=== PATIENT | female | born 1950 | race African-American/Black ===

== ENCOUNTER 2017-09-16 09:50 | Day surgery (SDC) | payer MEDICARE, MEDICAID ==
[~2017-09-16] VITALS: Ht 165.1 cm; Wt 55.3 kg
[2017-09-16] MEDS ORDERED: ZITHROMAX Z PA250 MG PO (10:44)
[2017-09-16] MEDS ORDERED: ACIDOPHILIS PO (10:45)
[2017-09-16] MEDS ORDERED: ALBUTEROL0.83 MG/ML IH (10:46)
[2017-09-16] MEDS ORDERED: NORVASC 10MG10 MG PO (10:47)
[2017-09-16] MEDS ORDERED: COLACE 100100 MG/CAP PO (10:47)
[2017-09-16] MEDS ORDERED: COREG12.5 MG PO (10:47)
[2017-09-16] MEDS ORDERED: FERRO-TIME325 MG PO (10:48)
[2017-09-16] MEDS ORDERED: FLONASEALLERGY NS (10:49)
[2017-09-16] MEDS ORDERED: FOLIC ACID 11 MG/TA1 PO (10:49)
[2017-09-16] MEDS ORDERED: MIRALAX PA17 GM/Dose PO (10:50)
[2017-09-16] MEDS ORDERED: LASIX 40MG TABL40 MG PO (10:50)
[2017-09-16] MEDS ORDERED: PRILOTC PO (10:51)
[2017-09-16] MEDS ORDERED: 00186-0370-20 IH (10:52)
[2017-09-16] MEDS ORDERED: SINGULAIR 110 MG/TAB PO (10:52)
[2017-09-16] MEDS ORDERED: K-DUR20 MEQ PO (10:52)
[2017-09-16] MEDS ORDERED: VENTOLIN0.09 MG IH (10:53)
[2017-09-16] MEDS ORDERED: EFFEXOR XR37.5 MG/CA PO (10:53)
[2017-09-16 10:55] VITALS: BP 126/60; PULSE 63; TEMP 97.6
[2017-09-16 12:10] VITALS: BP 106/55; PULSE 70; TEMP 97.6
[2017-09-16 12:25] VITALS: BP 145/60; PULSE 60
[2017-09-16 12:40] VITALS: BP 139/68; PULSE 59
== END 2017-09-16 13:10 | disposition home or self-care (01) ==
LOC: SDCO 09:50
DX: K21.9 Gastro-esophageal reflux disease without esophagitis (principal); K92.1 Melena; K44.9 Diaphragmatic hernia without obstruction or gangrene; D50.0 Iron deficiency anemia secondary to blood loss (chronic); K59.00 Constipation, unspecified; I10 Essential (primary) hypertension; J44.9 Chronic obstructive pulmonary disease, unspecified; F17.210 Nicotine dependence, cigarettes, uncomplicated; E03.9 Hypothyroidism, unspecified; Z90.49 Acquired absence of other specified parts of digestive tract; Z83.71 Family history of colonic polyps
CPT/HCPCS: OP; J2250; J2704; J7030

== ENCOUNTER 2019-03-28 12:28 | Day surgery (SDC) | payer MEDICARE, MEDICAID ==
[~2019-03-28] VITALS: Ht 165.1 cm; Wt 46.4 kg
[2019-03-28] VITALS (7 sets, daily range): BP systolic 153–192; BP diastolic 72–84; PULSE 55–59; TEMP 98–98.1
[~2019-03-28 12:28] MED LIST: 00186-0370-20 IH; ACIDOPHILIS PO; ALBUTEROL0.83 MG/ML IH; COLACE 100100 MG/CAP PO; COREG12.5 MG PO; EFFEXOR XR37.5 MG/CA PO; FERRO-TIME325 MG PO; FLONASEALLERGY NS; FOLIC ACID 11 MG/TA1 PO; K-DUR20 MEQ PO; LASIX 20MG TABL20 MG PO; MIRALAX PA17 GM/Dose PO; NORVASC 10MG10 MG PO; PRILOTC PO; SINGULAIR 110 MG/TAB PO; VENTOLIN0.09 MG IH; ZITHROMAX Z PA250 MG PO
[2019-03-28] MEDS ORDERED: ASPIRIN E.C. 8181 MG PO (13:22)
[2019-03-28] MEDS ORDERED: PULMICORT0.5 MG/2 M IH (13:23)
[2019-03-28] MEDS ORDERED: CALCIUM 600-D 61 TAB PO (13:24)
[2019-03-28] MEDS ORDERED: VITAMIN D32000 I1 PO (13:27)
[2019-03-28] MEDS ORDERED: CLARITIN 1010 MG/TAB PO (13:28)
[2019-03-28] MEDS ORDERED: NEURONTIN100 MG/CAP PO (13:32)
[2019-03-28] MEDS ORDERED: MOTRIN 200200 MG/TAB PO (13:33)
[2019-03-28] MEDS ORDERED: NITROSTAT0.4 MG/TAB SL (13:36)
[2019-03-28] MEDS ORDERED: MUCINEX 60600 MG/TA1 PO (13:36)
[2019-03-28] MEDS ORDERED: NORCO 325 MG-51 TAB PO (13:37)
[2019-03-28] MEDS ORDERED: PERFOROMIS20 MCG/2 M IH (13:40)
[2019-03-28] MEDS ORDERED: VITAMIN E 400 U4001 PO (13:40)
--- NOTE | 2019-03-28 15:15 | NUR ---
Pt returns from procedure via cart and needs to use the restroom. Pt ambulated with RN assist to the restroom without complications.
--- NOTE | 2019-03-28 15:20 | NUR ---
Pt ambulates from restroom to [facility] [place] [facility] with RN assist without complications. Monitors on and alarms set. Call light within reach. Report received from Krzysztof Earl RN. Pt has no complaints of pain or nausea. Pt requests muffin and Pepsi.
--- NOTE | 2019-03-28 15:30 | NUR ---
Pt taking food and drink well. Pt alert and voices no complications.
--- NOTE | 2019-03-28 15:55 | NUR ---
Pt ready for discharge. Pt's ride called, and they stated they're on their way. Pt states that her blood pressure is usually high, she is on medication, and she is addressing this with her doctor.
--- NOTE | 2019-03-28 16:20 | NUR ---
Discharge instructions given to patient. All questions answered to her satisfaction. Handed to her are a thank you card, discharge instructions, diagnosis information, a health summary, and a discharge med sheet.
--- NOTE | 2019-03-28 16:25 | NUR ---
Pt transferred out of hospital via wheelchair and this RN to private vehicle driven by transport service.
== END 2019-03-28 16:25 | disposition home or self-care (01) ==
LOC: SDCO 12:28
DX: K29.30 Chronic superficial gastritis without bleeding (principal); R19.5 Other fecal abnormalities; K25.7 Chronic gastric ulcer without hemorrhage or perforation; Z86.010 Personal history of colon polyps; D12.0 Benign neoplasm of cecum; Z86.73 Personal history of transient ischemic attack (TIA), and cerebral infarction without residual deficits; K44.9 Diaphragmatic hernia without obstruction or gangrene; D64.9 Anemia, unspecified; I25.10 Atherosclerotic heart disease of native coronary artery without angina pectoris; I10 Essential (primary) hypertension; R06.2 Wheezing; Z83.71 Family history of colonic polyps; Z79.899 Other long term (current) drug therapy; Z90.49 Acquired absence of other specified parts of digestive tract; Z95.5 Presence of coronary angioplasty implant and graft; J44.9 Chronic obstructive pulmonary disease, unspecified; F17.210 Nicotine dependence, cigarettes, uncomplicated; Z88.5 Allergy status to narcotic agent; Z88.0 Allergy status to penicillin
CPT/HCPCS: J2704

== ENCOUNTER 2019-11-02 05:35 | Inpatient (IN) | payer MEDICARE, MEDICAID ==
[2019-11-02] VITALS (212 sets, daily range): BP systolic 131–162; BP diastolic 66–72; PULSE 58–64; TEMP 97.7–98.5; O2SAT 66–100
[~2019-11-02] VITALS: Ht 165.1 cm; Wt 46.7 kg
[~2019-11-02 05:35] MED LIST changes: +ASPIRIN E.C. 8181 MG PO; +CALCIUM 600-D 61 TAB PO; +CLARITIN 1010 MG/TAB PO; +MOTRIN 200200 MG/TAB PO; +MUCINEX 60600 MG/TA1 PO; +NEURONTIN100 MG/CAP PO; +NITROSTAT0.4 MG/TAB SL; +NORCO 325 MG-51 TAB PO; +PERFOROMIS20 MCG/2 M IH; +PULMICORT0.5 MG/2 M IH; +VITAMIN D32000 I1 PO; +VITAMIN E 400 U4001 PO
--- NOTE | 2019-11-02 07:20 | NUR ---
Pt admitted to IMCU bed 15 at this time from [facility] ED. Pt arrived via EMS and was placed on manual training teacher upon arrival. Pt denies pain or any other discomforts and tolerated transfer well with no complaints raised to this RN. Dr. Jaquez notified of Pt's admission to unit.
[2019-11-02 10:29] LABS: MEAN CELL VOLUME 79 fl (80.0-100.0); MEAN CORPUSCULAR HGB CONC 32 g/dl (33.0-37.0); MEAN PLATELET VOLUME 12.3 fl (7.4-10.4); PLATELET COUNT 173 K/mm3 (130-400); RED BLOOD COUNT 2.81 M/mm3 (4.10-5.30); REDCELL DISTRIBUTION WIDTH-CV 16.1 % (11.5-14.5)
[2019-11-02 10:38] LABS: HEMATOCRIT 22.2 % (37.0-47.0); HEMOGLOBIN 7.1 g/dl (12.5-16.0); MEAN CORPUSCULAR HEMOGLOBIN 25 pg (27.0-31.0)
[2019-11-02 10:40] LABS: ALBUMIN 3.8 gm/dL (3.5-5.0); BILIRUBIN,TOTAL 0.5 mg/dL (0.0-1.0); CALCIUM 8.5 mg/dL (8.4-10.2); CREATININE, serum 5.21 (0.52-1.25); MAGNESIUM 2.3 mg/dL (1.6-2.3); PHOSPHOROUS 6.8 mg/dL (2.5-4.5); POTASSIUM 4.3 mmol/L (3.4-5.0); TOTAL PROTEIN 6.8 gm/dL (6.4-8.2)
[2019-11-02] MEDS ORDERED: PRILOSEC 20MG20 MG PO (10:52)
[2019-11-02] MEDS ORDERED: LIPITOR 40MG TA40 MG PO (10:53)
[2019-11-02] MEDS ORDERED: APRESOLINE 25MG25 MG PO (10:53)
[2019-11-02 10:55] LABS: TROPONIN-I 0.183 ng/mL (0.000-0.035)
[2019-11-02 11:07] LABS: BASOPHIL 1 % (0-2); LYMPHOCYTE 5 % (20.0-51.0); NEUTROPHILS 93 % (42.0-75.2); PLATELET ESTIMATE NORMAL (NORMAL); TARGET CELLS 1+
[2019-11-02 11:08] LABS: BURR CELLS 2+
--- NOTE | 2019-11-02 11:37 | NUR ---
Admission assessment complete at this time. Plan of care reviewed at bedside with patient. Additional time taken to address any other educational needs or concerns. Vitals stable at this time. Pt denies pain or any other discomforts. Bed in low position, call light within reach, will continue to monitor.
[2019-11-02 12:29] LABS: COLLECTION METHOD CLEAN CATCH
[2019-11-02 12:35] LABS: PH 5 (5-8); SQUAMOUS EPITHELIAL 0-2 /hpf; URINE APPEARANCE Clear; URINE BACTERIA None Seen /hpf; URINE BILIRUBIN Negative (NEGATIVE); URINE BLOOD 2+ (NEGATIVE); URINE COLOR Yellow; URINE GLUCOSE Negative (NEGATIVE); URINE KETONE Negative (NEGATIVE); URINE LEUKOCYTE ESTERASE Negative (NEGATIVE); URINE NITRATE Negative (NEGATIVE); URINE PROTEIN(semi-quant) 2+ (NEGATIVE); URINE RBC 0-2 /hpf; URINE UROBILINOGEN Negative (NEGATIVE)
--- NOTE | 2019-11-02 13:11 | NUR ---
BLISTER PACKAGING MACHINE OPERATOR student met with the patient to complete initial intake. The patient lives alone in [place]. The patient stated that her supports are her brother, Daniel and a friend Swati Carrasquillo. The patient has a cane she uses "sometimes" to assist with ambulation. The patient's PCP is Dr. Grigsby and patient has medications delivered from [facility]. She states, "I do not drive." The patient does not have advanced directives in the EMR but was interested in a DPOA-HC form. Form provided. social services counselor will continue to follow to ensure a safe discharge.
--- NOTE | 2019-11-02 19:21 | NUR ---
Bedside report given to DENNIS Muñoz.
[2019-11-03] VITALS (182 sets, daily range): BP systolic 145–169; BP diastolic 57–88; PULSE 58–64; TEMP 97.4–98.9; O2SAT 48–100
[2019-11-03 05:23] LABS: CALCIUM 8.5 mg/dL (8.4-10.2); CREATININE, serum 5.17 (0.52-1.25); MAGNESIUM 2.3 mg/dL (1.6-2.3); POTASSIUM 4.6 mmol/L (3.4-5.0)
[2019-11-03 05:35] LABS: BASO % 0.1 % (0.0-2.0); GRAN % 79.5 % (42.2-75.2); LYMPH # 0.7 (1.2-3.4); LYMPH % 9.4 % (20.0-51.0); MEAN CELL VOLUME 78 fl (80.0-100.0); MEAN CORPUSCULAR HGB CONC 33 g/dl (33.0-37.0); MEAN PLATELET VOLUME 12.4 fl (7.4-10.4); MONO # 0.8 (0.1-0.6); MONO % 10.3 % (1.7-9.3); PLATELET COUNT 169 K/mm3 (130-400)
[2019-11-03 05:37] LABS: TROPONIN-I 0.117 ng/mL (0.000-0.035)
[2019-11-03 05:41] LABS: HEMATOCRIT 20.2 % (37.0-47.0); HEMOGLOBIN 6.6 g/dl (12.5-16.0); MEAN CORPUSCULAR HEMOGLOBIN 25 pg (27.0-31.0)
--- NOTE | 2019-11-03 07:30 | NUR ---
Bedside report recieved from DENNIS Muñoz. Patient participates and all questions asked are answered. Care assumed at this time.
[2019-11-03 08:08] LABS: URINE PROTEIN:CREAT RATIO 1.23 (0.00-0.14)
--- NOTE | 2019-11-03 10:55 | NUR ---
Report called to DENNIS Muñoz.
--- NOTE | 2019-11-03 11:17 | NUR ---
DANAY met with patient about follow-up for support services. Patient reports that she has a piano case maker and a care attendent. Care Attendent is Estrella Casiano . Patient reports that she has a cane that she uses often for mobility, 02 at 3 liters daily and a nueblizer. Patient reports that she obtains her RX from [employer]. Neli is her sister who she uses for medical decisions or other concerns . Patient reports that she gets meals on wheels but does not have an appetite and will eat when she is ready. Patient reports she supplements with protien shakes. Clients home phone is [phone]. Patient would like to use [facility]. Patient reports that she has used [facility] in the past but they would not come out they way they were supposed to . DANAY faxed initial to [facility], please follow-up. , Fax.
--- NOTE | 2019-11-03 12:55 | NUR ---
Elementary Teacher offered prayer and support with patient.
[2019-11-03 14:47] LABS: HEMATOCRIT 25.3 % (37.0-47.0); HEMOGLOBIN 8.5 g/dl (12.5-16.0)
--- NOTE | 2019-11-03 18:21 | NUR ---
Pt up from the ICU late this morning, had some C/O pain this afternoon and medications were given for relief, VS have remained stabl this afternoon.
--- NOTE | 2019-11-03 18:40 | NUR ---
PT report recieved at bedside from Toni COLLINS. PT is resting in bed with TV on and no complaints of pain at this time. PT states that her only want/need is a cup of black coffee. No s/s of distress noted. Call light within reach. Will continue to monitor.
--- NOTE | 2019-11-03 20:15 | NUR ---
PT is resting in bed peacefully with eyes closed and tv on. PT is A&Ox4 and is able to make wants/needs known. PT is able to reposition herself in bed. PT states that she has some mild arthritis pain in her legs but does not need anything for pain except her muscle rub cream. PT shows no s/s of distress. PT has not yet had a BM so as to collect her occult sample nor has she been able to expel sputum for her sputum culture yet. Call light within reach. Will continue to monitor.
[2019-11-04] VITALS (11 sets, daily range): BP systolic 119–172; BP diastolic 53–80; PULSE 52–63; TEMP 97.6–98.6
--- NOTE | 2019-11-04 01:45 | NUR ---
PT has been resting peacefully in bed during this shift with no s/s of distress noted. PT has periodically requested coffee for a beverage and reports that she has not been able to finish a full cup due to the fact that she falls asleep and upon waking the coffee is too cold to drink. PT remains in stable condition at this time. Call light within reach. Will continue to monitor.
--- NOTE | 2019-11-04 07:00 | NUR ---
PT report given to Bita COLLINS. PT resting in bed awake with no s/s of distress noted.
[2019-11-04 07:38] LABS: GRAN # 7.9 (1.4-6.5); GRAN % 81.4 % (42.2-75.2); LYMPH # 0.9 (1.2-3.4); LYMPH % 8.8 % (20.0-51.0); MEAN CELL VOLUME 80 fl (80.0-100.0); MEAN CORPUSCULAR HGB CONC 33 g/dl (33.0-37.0); MEAN PLATELET VOLUME 12.4 fl (7.4-10.4); MONO # 0.9 (0.1-0.6); MONO % 9.3 % (1.7-9.3); PLATELET COUNT 147 K/mm3 (130-400); RED BLOOD COUNT 2.31 M/mm3 (4.10-5.30); REDCELL DISTRIBUTION WIDTH-CV 15.6 % (11.5-14.5)
[2019-11-04 07:42] LABS: CALCIUM 8.9 mg/dL (8.4-10.2); CREATININE, serum 4.53 (0.52-1.25); MAGNESIUM 2.3 mg/dL (1.6-2.3); POTASSIUM 4.2 mmol/L (3.4-5.0)
--- NOTE | 2019-11-04 07:45 | NUR ---
Pt assessment complete. Pt sitting up in bed eating breakfast, she is A/O x4. Her breathing is even and unlabored on 2L O2 via NC. Pt denies SOB. No cough. Pt reports muscle aches, PRN Tylenol administered. Pt denies any N/V. Isolation precautions in place. Will continue to monitor.
[2019-11-04 07:54] LABS: HEMATOCRIT 18.4 % (37.0-47.0); HEMOGLOBIN 6.1 g/dl (12.5-16.0); MEAN CORPUSCULAR HEMOGLOBIN 26 pg (27.0-31.0)
--- NOTE | 2019-11-04 10:34 | NUR ---
Blood transfusion started at this time. Protocol followed and blood verified with DENNIS Reynaga. S/Sx's of blood transfusion discussed with patient. This nurse will remain at bedside for first 15 minutes of transfusion.
--- NOTE | 2019-11-04 14:25 | NUR ---
REFUSED, WANTS TO SLEEP
[2019-11-04 16:51] LABS: HEMATOCRIT 21.2 % (37.0-47.0); HEMOGLOBIN 7.1 g/dl (12.5-16.0)
--- NOTE | 2019-11-04 18:09 | NUR ---
Pt sleeping now, tolerated first infusion without complications. Going to have a second infusion later tonight. Pt reported L hip/groin pain through the day, foam mattress placed on bed as well as PRN Tylenol administered. Pt had to be encouraged to eat. Isolation precautions in place. Will continue to monitor.
--- NOTE | 2019-11-04 23:06 | NUR ---
PT IN BED, VERY DROWSY, PT DOES NOT ORIENTED TO TIME OR DAY. PT DOES KNOW HER NAME AND WHERE SHE IS AT. PT OVERALL PLEASANT, IV SITE LEAKING BLOOD, SCREWED ON TUBING TO IV SITE, FLUSHED, PT IV INTACT. PT STATING SHE IS COLD AND WARM BLANKETS DO NOT HELP. UNREMARKABLE ASSESSMENT. COMPLAING OF L HIP PAIN TYLENOL ADMINISTERED. , HELPED READJUSTING. WATER AT BEDSIDE, BED IN LOWEST POSITION.
[2019-11-05] VITALS (12 sets, daily range): BP systolic 151–180; BP diastolic 49–95; PULSE 54–92; TEMP 97.5–99.3
--- NOTE | 2019-11-05 00:15 | NUR ---
PRE VITALS PERFORMED, PT EDUCATED ON S/S TO REPORT, BLOOD ADMINISTRATION STARTED, PT ONLY REPORTS FEELING TIRED.
--- NOTE | 2019-11-05 00:34 | NUR ---
OPEN CLAIMS REPRESENTATIVE NOTIFIED OF HIGH BLOOD PRESSURE, HYDRALAZINE PRN ORDERED IN RESPONSE.
--- NOTE | 2019-11-05 01:23 | NUR ---
PT TOLERATING BLOOD WELL, REPORTING NO SOB, LOWER BACK PAIN, CHILLS, HEAT FLASHES, OR ITCHING. PT MORE ALERT, APPEARS LESS DROWSY.
--- NOTE | 2019-11-05 02:43 | NUR ---
PT BP 15 MIN AFTER HYDRALAZINE WAS 160/63
--- NOTE | 2019-11-05 03:37 | NUR ---
PT BLOOD STOPPED, PHYSICIAN NOTIFIED OF CONTINUED BP EVEN THOUGH HYDRALAZINE PRN WAS ADMINISTERED.
--- NOTE | 2019-11-05 04:27 | NUR ---
HYDRALAZINE 10 MG ADMINISTERED PER PRODUCT MANAGEMENT INTERN ORDERS NOW.
--- NOTE | 2019-11-05 04:59 | NUR ---
pt in bed awake, pt requested coffee. more aware of time of day and said correct day of the week. pt seems more alert. pt table near bed, call light, phone, within reach, pt overall pleasant. bp recheck due soon. no other needs at this time.
--- NOTE | 2019-11-05 05:45 | NUR ---
pt's bp recheck 170/58
[2019-11-05 06:28] LABS: ALBUMIN 3.1 gm/dL (3.5-5.0); BILIRUBIN,TOTAL 0.6 mg/dL (0.0-1.0); CALCIUM 9.2 mg/dL (8.4-10.2); CREATININE, serum 4.05 (0.52-1.25); POTASSIUM 4.4 mmol/L (3.4-5.0); TOTAL PROTEIN 5.8 gm/dL (6.4-8.2)
[2019-11-05 06:33] LABS: BASO % 0.1 % (0.0-2.0); GRAN # 7.3 (1.4-6.5); GRAN % 76.2 % (42.2-75.2); LYMPH # 1.1 (1.2-3.4); LYMPH % 11.4 % (20.0-51.0); MEAN CELL VOLUME 82 fl (80.0-100.0); MEAN CORPUSCULAR HGB CONC 35 g/dl (33.0-37.0); MEAN PLATELET VOLUME 12.8 fl (7.4-10.4); MONO # 1.1 (0.1-0.6); MONO % 11.5 % (1.7-9.3); PLATELET COUNT 103 K/mm3 (130-400); RED BLOOD COUNT 2.54 M/mm3 (4.10-5.30); REDCELL DISTRIBUTION WIDTH-CV 14.8 % (11.5-14.5)
[2019-11-05 06:34] LABS: HEMATOCRIT 20.9 % (37.0-47.0); HEMOGLOBIN 7.3 g/dl (12.5-16.0); MEAN CORPUSCULAR HEMOGLOBIN 29 pg (27.0-31.0)
--- NOTE | 2019-11-05 09:00 | NUR ---
Assessment complete. Pt sitting up in bed trying to eat breakfast, reports minimal appetite. Pt reports pain to left hip, upper leg region 7 out of 10 on pain scale. Pt with incontinent episode of urine this morning, states, "I just didn't call for help soon enough." No further needs reported. Call light in reach.
[2019-11-05 13:08] LABS: ARTERIAL BLD GAS O2 SATURATION 96.7 % (92-100); ARTERIAL BLD GAS TCO2 CT 26.2; ARTERIAL BLOOD GAS BASE EXCESS 0.1 (-2-2); ARTERIAL BLOOD GAS HCO3 24.9 meq/L (22-26); ARTERIAL BLOOD GAS PCO2 41.2 mmHg (35-45); ARTERIAL BLOOD GAS PO2 89.3 mmHg (80-100)
--- NOTE | 2019-11-05 16:48 | NUR ---
Discotheque Dancer followed up with [facility] who advised they did not receive referral. SW refaxed referral. SW reviewed patient's PT note which states patient may need post acute rehab. SW attempted to meet with patient who had difficulty keeping her eyes open. Patient requested coffee and DANAY provided. SW spoke with patient about PT recommendation and patient states she needs time to think about it. DANAY provided Medicare.gov list of nursing homes in her area. SW to continue to follow.
--- NOTE | 2019-11-05 18:00 | NUR ---
Pt with intermittent lethargy throughout shift, difficult to arouse following CT scan earlier today. Provider notified and assessment completed. Orders received. Pt more alert following MRI. Daughter in to visit at this time and pt sitting and visiting and attempting to eat dinner. BP was high at start of shift, has lowered this afternoon. Call light in reach.
--- NOTE | 2019-11-05 21:56 | NUR ---
PT IN BED, PT MUCH MORE AWAKE THAN LAST NIGHT. INTERACTING VERBALLY, GIVING BANTER, NOT ORIENTED TO DATE, STATED IT WAS 11/04/19 BUT KNEW THE YEAR WAS 2019, ALERT TO LOCATION AND PERSON WELL. PT REMINDED TO TAKE PILLS MULTIPLE TIMES. IV FLUSHED WELL, BED IN LOW POSITION, CALL LIGHT WITHIN REACH, HEELS FLOATED ON PILLOW, REPORTING L HIP PAIN BUT NOT WANTING PAIN MEDICATION. NO OTHER NEEDS AT THIS TIME.
[2019-11-06] VITALS (12 sets, daily range): BP systolic 134–194; BP diastolic 53–94; PULSE 60–73; TEMP 97.5–99.3
--- NOTE | 2019-11-06 03:04 | NUR ---
pt bp with systolic 176, hydralazine administered.
--- NOTE | 2019-11-06 05:33 | NUR ---
PT BP STILL ELEVATED , PRN HYDRALAZINE NOT AVAILABLE DUE TO ADMINISTRATION TIMES BEING TOO CLOSE TOGETHER, PCA NOTIFIED, CLONIDINE SCHEDULED RESULT.
--- NOTE | 2019-11-06 07:08 | NUR ---
PHYSICIAN NOTIFIED OF HIGH BLOOD PRESSURES DURING THE NIGHT AND HYDRALAZINE ADMINISTRATION.
--- NOTE | 2019-11-06 07:44 | NUR ---
PT HAD MULTIPLE HYPERTENSIVE EPISODES DESPITE PHARMACOLOGICAL INTERVENTION. [place] DURING NIGHT NOTIFIED, PHYSICIAN DURING DAY NOTIFIED. DURING NIGHT HAD HARD TIME GETTING BP READING ON HER ARM. EVENTUALLY ABLE TO OBTAIN A BP THAT READ 194 SYSTOLIC AND HYDRALAZINE WAS ADMINISTERED, 24 URINE ON ICE, BED IN LOW POSITION, RECEIVED TYLENOL FOR L HIP ONCE DURING NIGHT, WATER AT BEDSIDE, CALL LIGHT AT BEDSIDE. NO OTHER NEEDS AT THIS TIME.
[2019-11-06 08:35] LABS: BASO % 0.1 % (0.0-2.0); EOS % 0.1 % (0-4.0); GRAN # 8.6 (1.4-6.5); GRAN % 74.9 % (42.2-75.2); LYMPH # 1.4 (1.2-3.4); LYMPH % 12.2 % (20.0-51.0); MEAN CELL VOLUME 84 fl (80.0-100.0); MEAN CORPUSCULAR HGB CONC 34 g/dl (33.0-37.0); MONO # 1.4 (0.1-0.6); MONO % 11.9 % (1.7-9.3); PLATELET COUNT 122 K/mm3 (130-400); RED BLOOD COUNT 2.14 M/mm3 (4.10-5.30); REDCELL DISTRIBUTION WIDTH-CV 14.8 % (11.5-14.5)
[2019-11-06 08:38] LABS: HEMATOCRIT 17.9 % (37.0-47.0); HEMOGLOBIN 6.1 g/dl (12.5-16.0); MEAN CORPUSCULAR HEMOGLOBIN 29 pg (27.0-31.0)
[2019-11-06 08:47] LABS: CALCIUM 10.1 mg/dL (8.4-10.2); CREATININE, serum 3.81 (0.52-1.25); POTASSIUM 3.8 mmol/L (3.4-5.0)
--- NOTE | 2019-11-06 15:09 | NUR ---
Financial Services Auditor met with patient to follow up on choice for post acute rehab. SW reviewed Medicare.gov list of SNF's in patient's area that was provided to her yesterday. Patient states she does not want to go to the SNF in [place] but wants to stay in [place]. SW presented Patient Choice Form to patient who selected [facility] as first preference and [facility] as second preference. SW contacted Glenn at [facility] and Jose Carlos at [facility] then faxed referrals. SW contacted [facility] and provided update on discharge plan. SW to continue to follow.
[2019-11-06 15:16] LABS: CREATININE, serum 3.81 (0.52-1.25); URINE CREATININE CLEARANCE 14.5 mL/min (88-128); URINE TOTAL VOLUME 875 mL
--- NOTE | 2019-11-06 17:29 | NUR ---
patient is alert and oriented all through this shift. patient is in isolation for Influenza A. Hemoglobin is 6.1. Dr. Montes ordered for 1 unit of blood. patient tolerate the tranfusion well. pt had an episode of BP>160. Patient got a scheduled Hydralizine, BP reduced to mid 140's systolic. complained of pain in her leg. 24 hr urine sample was sent to lab. Urine creatitine clearance-14.5, total protein-857.50, Creatitine 3.81. Zachary MCDONALD was notified about the result. Hip CT Scan show hematoma. Megan consulted Surgery. patient is currently resting in bed. family visiting at the moment.
[2019-11-06 19:58] LABS: HEMATOCRIT 24.7 % (37.0-47.0); HEMOGLOBIN 8.5 g/dl (12.5-16.0)
--- NOTE | 2019-11-06 21:07 | NUR ---
PT IN BED, REPORTED HAVING A HARD TIME CATCHING HER BREATH, PULSEOX READ 96% ON ROOM AIR. PT BOOSTED IN BED AND PT REPORTED THIS HELPED HER BREATH EASIER. MEDICATIONS GIVEN, NO PAIN REPORTED, NO OTHER NEEDS AT THIS TIME. BED IN LOWEST POSITION, CALL LIGHT WITHIN REACH, DRANK 1 NEPRO, 1 MORE AT BEDSIDE. A0X4 MORE ENERGETIC THAN PREVIOUS NIGHTS.
--- NOTE | 2019-11-06 21:30 | NUR ---
PT COMPLAINING OF DIFFICULTY BREATHING, UPON ASSESSMENT OF O2 IT WAS DISCONNECTED FROM WALL. AFTER OXYGEN REATTACHMENT PT REPORTED RELIEF.
[2019-11-07] VITALS (12 sets, daily range): BP systolic 129–180; BP diastolic 52–97; PULSE 56–67; TEMP 98.1–99.3
--- NOTE | 2019-11-07 05:14 | NUR ---
PT IN BED SLEEPING, WOKE UP TO TAKE MEDICATION, DAILY WEIGHT TAKEN, VITALS TAKEN. PT NOT REPORTING PAIN OR DISCOMFORT, BED IN LOWEST POSITION. NO HYPERTENSIVE EPISODES DURING THE NIGHT, NO HYDRALAZINE PRN NEEDED. NO OTHER NEEDS AT THIS TIME.
[2019-11-07 07:30] LABS: BASO % 0.1 % (0.0-2.0); GRAN # 13.6 (1.4-6.5); GRAN % 89.9 % (42.2-75.2); LYMPH # 0.6 (1.2-3.4); LYMPH % 3.6 % (20.0-51.0); MEAN CELL VOLUME 85 fl (80.0-100.0); MEAN CORPUSCULAR HGB CONC 35 g/dl (33.0-37.0); MEAN PLATELET VOLUME 13.4 fl (7.4-10.4); MONO # 0.8 (0.1-0.6); MONO % 5.5 % (1.7-9.3); PLATELET COUNT 151 K/mm3 (130-400); RED BLOOD COUNT 2.73 M/mm3 (4.10-5.30); REDCELL DISTRIBUTION WIDTH-CV 14.8 % (11.5-14.5)
[2019-11-07 07:33] LABS: HEMATOCRIT 23.1 % (37.0-47.0); MEAN CORPUSCULAR HEMOGLOBIN 29 pg (27.0-31.0)
[2019-11-07 07:37] LABS: CALCIUM 11.1 mg/dL (8.4-10.2); CREATININE, serum 3.64 (0.52-1.25); POTASSIUM 3.9 mmol/L (3.4-5.0)
--- NOTE | 2019-11-07 14:25 | NUR ---
SEE MERGE DOCUMENTATION FOR MEDICATION ADMINISTRATION AND INTRA/POST PROCEDURE SEDATION ASSESSMENTS.
--- NOTE | 2019-11-07 15:15 | NUR ---
Inspector Line attended clinical rounds today and patient to start dialysis tomorrow. DANAY met with patient's daughter Estrella (ph#[phone]) to discuss discharge planning. DANAY provided update on referrals sent to [facility] and [facility]. Estrella would like for the two facilities to call her. DANAY contacted Glenn at [facility], faxed updates, and requested he contact Estrella. Glenn advised he may not have a female bed available depending on the day of discharge. DANAY called Jose Carlos at [facility] and left a message including contact information for patient's daughter Estrella and a request to call her then faxed updates. Jose Carlos had been at hospital earlier to screen patient. SW to continue to follow.
[2019-11-07 18:53] LABS: HEPATITIS B SURFACE ANTIBODY 3.7 (()); HEPATITIS B SURFACE ANTIGEN Negative (Negative); HEPATITIS C VIRUS ANTIBODY Negative (Negative)
--- NOTE | 2019-11-07 20:26 | NUR ---
THIS NURSE ASSISTED PT TO COMMODE. THIS NURSE HELPED PT BACK TO BED. UPON PT LAYING ABCK IN BED, SAW BLEEDING TO RT IJ SITE. THIS NURSE CALLED TAMARA REEVES AND NOTIFIED. WAS TOLD TO APPLY PRESSURE FOR 30 MINS THEN APPLY DRESSING GAUZE OVER SITE. PRESSURE APPLIED. PT HAD C/O PAIN FROM THIS, I INFORMED JOSE ALBERTO RN TAKING OVER ABOUT THIS AND SHOWED HER SITE AREA AND INFOMRED HER OF SITUATION.
--- NOTE | 2019-11-07 20:30 | NUR ---
Shift assessment complete. Patient in bed, awake. Pt had ambulated to with day shift RN. Right chest HD catheter bleeding. Pressure held for 30 minutes by day RN. DENNIS Garcia ([facility]), aware. States to call her if bleeding continues. Bleeding appears to have stopped, will continue to monitor. States pain in right chest 10/10. Prn tylenol given per pt request. Denies further needs at this time. Will continue to monitor.
[2019-11-08 05:20] VITALS: BP 153/87; PULSE 70; TEMP 98.6
--- NOTE | 2019-11-08 05:36 | NUR ---
Patient ambulated to [facility] with standby assist. Right chest HD catheter intact, drainage on gauze remains unchanged. Not actively bleeding. Denies pain. Denies further needs at this time. Will continue to monitor.
[2019-11-08 08:04] VITALS: BP 160/87; PULSE 66; TEMP 98.6
[2019-11-08 08:23] LABS: MEAN CELL VOLUME 85 fl (80.0-100.0); MEAN CORPUSCULAR HGB CONC 33 g/dl (33.0-37.0); MEAN PLATELET VOLUME 11.9 fl (7.4-10.4); PLATELET COUNT 177 K/mm3 (130-400); RED BLOOD COUNT 2.58 M/mm3 (4.10-5.30); REDCELL DISTRIBUTION WIDTH-CV 15.3 % (11.5-14.5)
[2019-11-08 08:28] LABS: HEMATOCRIT 21.9 % (37.0-47.0); HEMOGLOBIN 7.3 g/dl (12.5-16.0); MEAN CORPUSCULAR HEMOGLOBIN 28 pg (27.0-31.0)
[2019-11-08 08:30] LABS: CALCIUM 10.9 mg/dL (8.4-10.2); CREATININE, serum 3.41 (0.52-1.25); POTASSIUM 3.5 mmol/L (3.4-5.0)
[2019-11-08 09:07] LABS: ANISOCYTOSIS 1+; BAND 1 % (0-10); HYPOCHROMIA 2+; LYMPHOCYTE 5 % (20.0-51.0); NEUTROPHILS 82 % (42.0-75.2); PLATELET ESTIMATE NORMAL (NORMAL)
[2019-11-08 16:10] VITALS: BP 150/57; PULSE 60; TEMP 98.5
[2019-11-08 16:27] LABS: HEMATOCRIT 22.1 % (37.0-47.0); HEMOGLOBIN 7.4 g/dl (12.5-16.0)
--- NOTE | 2019-11-08 17:00 | NUR ---
PT WENT DOWN THIS DAY FOR DIALYSIS, PT TOLERATED WELL. DID LATER UPON RETURNING BACK TO FLOOR HAVE A LITTLE BIT OF NAUSEA REPORTED TO LEANDRO MCDONALD ABOUT THIS SINCE SHE WAS ON THE FLOOR AT THIS TIME WELL AND RECIEVED AN ORDER FOR PT TO GET SOME ZOFRAN, THIS NURSE ADMINISTERED MED. PT STATED THAT IT DID HELP BUT IT TOOK AWHILE TO WORK. NO NOTED EMISIS. PT DID HAVE C/O HIP PAIN ONE TIME THIS DAY AND NEEDED SOME TYLENOL, STATED THE TYLENOL RESOVLEVED THE PAIN. NO OTHER CONSERNS VOICED THIS SHIFT.
--- NOTE | 2019-11-08 18:40 | NUR ---
Pt received report from dayshift nurse at Pt bedside. Pt is resting peacefully in bed at this time with no s/s of distress noted. Call light within reach of Pt and bedside table has beverages within reach. Will continue to monitor.
[2019-11-08 19:59] VITALS: BP 186/52; PULSE 60; TEMP 99.1
--- NOTE | 2019-11-08 20:00 | NUR ---
Pt is noted to have elevated SBP >160. Dayshift nurse is still on the unit and reports to this speech writer that Pt received evening meds late and advises that this speech writer should hold off on PRN hydralazine since the BP meds that were administered late need time to fully work and giving PRN hydralazine now may cause the Pt's BP to drop further than desired. Will continue to monitor and reassess BP during evening med pass. Call light within reach and no s/s of distress noted. PT remains in bed watching TV peacefully.
[2019-11-08 23:39] VITALS: BP 148/86; PULSE 47; TEMP 99.5
--- NOTE | 2019-11-09 00:01 | NUR ---
Pt has remained in stable condition during this shift with no s/s of distress noted. Pt has not required PRN hydralazine secondary to her SBP reducing to below 160 after evening meds had time to work. Pt is currently resting peacefully in bed with eyes closed and call light at her side. Pt is A&Ox4 and able to make her wants/needs known. Pt continues to have reports of mild pain to her BLE secondary to arthritis but has required no pain interventions so far this shift. Will continue to monitor.
--- NOTE | 2019-11-09 03:32 | NUR ---
PATIENT SLEEPING. TX NOT GIVEN-PT REQUESTED SHE NOT BE AWAKENED.
[2019-11-09 04:01] VITALS: BP 140/76; PULSE 65; TEMP 99.1
--- NOTE | 2019-11-09 04:34 | NUR ---
Pt resting in bed with eyes closed and no s/s of distress noted. Will continue to monitor. Call light and beverage within reach.
--- NOTE | 2019-11-09 06:10 | NUR ---
Pt given am PO meds which she took without issues. Pt sat herself upright in bed and was able to reach over to her bedside table to get a drink after taking meds. No s/s of distress noted. Will continue to monitor. This lead technical writer informed Pt that her daughter contacted this lead technical writer earlier to check on how Pt was during the night and report was given that Pt has had some mild pain but has not needed pain relief as evidenced by Pt not requesting pain med and denying that she needed one when asked by this lead technical writer. Will continue to monitor.
[2019-11-09 06:47] LABS: BASO % 0.1 % (0.0-2.0); EOS % 0.1 % (0-4.0); GRAN # 11.4 (1.4-6.5); GRAN % 81.7 % (42.2-75.2); LYMPH # 0.9 (1.2-3.4); LYMPH % 6.4 % (20.0-51.0); MEAN CELL VOLUME 87 fl (80.0-100.0); MEAN CORPUSCULAR HGB CONC 33 g/dl (33.0-37.0); MEAN PLATELET VOLUME 12.2 fl (7.4-10.4); MONO # 1.5 (0.1-0.6); MONO % 10.8 % (1.7-9.3); PLATELET COUNT 200 K/mm3 (130-400); RED BLOOD COUNT 2.39 M/mm3 (4.10-5.30); REDCELL DISTRIBUTION WIDTH-CV 15.1 % (11.5-14.5)
[2019-11-09 06:50] LABS: HEMATOCRIT 20.9 % (37.0-47.0); HEMOGLOBIN 6.9 g/dl (12.5-16.0); MEAN CORPUSCULAR HEMOGLOBIN 29 pg (27.0-31.0)
[2019-11-09 06:59] LABS: ALBUMIN 3.3 gm/dL (3.5-5.0); BILIRUBIN,TOTAL 0.9 mg/dL (0.0-1.0); CALCIUM 10.6 mg/dL (8.4-10.2); CREATININE, serum 2.45 (0.52-1.25); POTASSIUM 3.8 mmol/L (3.4-5.0)
--- NOTE | 2019-11-09 07:18 | NUR ---
Pt report given to Oma COLLINS at bedside. Pt is resting peacefully in bed with eyes closed and no s/s of distress noted.
[2019-11-09 07:47] VITALS: BP 134/73; PULSE 63; TEMP 98.2
--- NOTE | 2019-11-09 08:33 | NUR ---
PT REPORTED A RESTLESS NIGHT LAST NIGHT "DIDNT SLEEP WELL." PT STATED THAT THIS MORNING SHE NOTICED THAT HER OXYGEN WAS OUT OF HER NOSE AND SHE BELIEVES THAT POSSIBLY CONTRIBUTED TO THE POOR SLEEP. IS GOING TO ATTEMPT TO NAP SOME THIS AM.
[2019-11-09 11:05] VITALS: BP 188/56; PULSE 64; TEMP 99.7
[2019-11-09 13:35] VITALS: BP 191/76; PULSE 60; TEMP 97.7
[2019-11-09 13:57] VITALS: BP 187/79; PULSE 58; TEMP 98.5
[2019-11-09 14:12] VITALS: BP 198/76; PULSE 62; TEMP 97.8
--- NOTE | 2019-11-09 16:00 | NUR ---
PT WENT DOWN TO DIALYSIS THIS AFTERNOON. RECIEVED HER BLOOD TRANSFUSION DURING. PT HAD NO ISSUES OR CONSERNS VOICED. EDUCATED TO TRANSFER TO ON LICENSE OF [facility], AND TX SIGANTURES OBTAINED. NURSE TAKING REPORT AT FACILITY CALL THIS NURSE AND RECIEVED REPORT. EMS PERSONJOSH ARRIVED AND PT ASSITED TO [facility] AND TRASPORTED MUNIR.
--- NOTE | 2019-11-09 16:09 | NUR ---
Box Car Washer notified patient to transfer to [facility] in [place]. SW notified [facility]. No additional needs at this time.
[2019-11-09 16:27] LABS: HEMATOCRIT 26.9 % (37.0-47.0); HEMOGLOBIN 8.9 g/dl (12.5-16.0)
== END 2019-11-09 17:00 | disposition short-term general hospital (02) | DRG 193 ==
LOC: ICU 05:35 → IMCU 08:20 → SURG 14:43 → ICU 14:48 → MEDICAL 11-03 11:29
PROVIDERS: Hospitalist; Internal Medicine; Internal Medicine Nephrology; Nurse Practitioner; Physician Assistant; Student in an Organized Health Care Education/Training Program; ADMIT Student in an Organized Health Care Education/Training Program
PROC: 5A1D70Z Performance of Urinary Filtration, Intermittent, Less than 6 Hours Per Day (ICD-10-PCS; principal; 2019-11-02)
DX: J10.1 Influenza due to other identified influenza virus with other respiratory manifestations (principal); J96.01 Acute respiratory failure with hypoxia; N17.9 Acute kidney failure, unspecified; J44.1 Chronic obstructive pulmonary disease with (acute) exacerbation; N18.5 Chronic kidney disease, stage 5; D62 Acute posthemorrhagic anemia; I12.0 Hypertensive chronic kidney disease with stage 5 chronic kidney disease or end stage renal disease; R58 Hemorrhage, not elsewhere classified; F17.210 Nicotine dependence, cigarettes, uncomplicated; K21.9 Gastro-esophageal reflux disease without esophagitis; K59.00 Constipation, unspecified; I25.10 Atherosclerotic heart disease of native coronary artery without angina pectoris; D69.6 Thrombocytopenia, unspecified; E83.39 Other disorders of phosphorus metabolism; E78.5 Hyperlipidemia, unspecified; I25.2 Old myocardial infarction; Z95.5 Presence of coronary angioplasty implant and graft; Z99.2 Dependence on renal dialysis
CPT/HCPCS: 99223-AI; 99231-AI; 99232-AI; 99233-AI; 99239; J0360; J1644; J2250; J7030; J7512; P9016

== ENCOUNTER → 2019-12-25 | Outpatient (CLI) | payer MEDICARE, MEDICAID ==
[~2019-12-25] MED LIST changes: +APRESOLINE 25MG25 MG PO; +CARDURA4 MG PO; +LEVAQUIN 5500 MG/TA1 PO; +LIPITOR 40MG TA40 MG PO; +LOPRESSOR 550 MG/TAB PO; +PREDNISONE10 MG PO; +PRILOSEC 20MG20 MG PO; +PROCARDIA XL90 MG PO
== END ==
LOC: COL.VAS 10:29
DX: Z01.818 Encounter for other preprocedural examination (principal); N18.6 End stage renal disease

== ENCOUNTER 2020-01-17 18:51 | Inpatient (IN) | payer MEDICARE, MEDICAID ==
[~2020-01-17] VITALS: Ht 165.1 cm; Wt 88.7 kg
[~2020-01-17 18:51] MED LIST changes: +APRESOLINE 10MG10 MG PO; +GENTLE LAXATIVE10 MG RC; +IPRATROPIUM BROM3 M1 IH; +OSCAL 500 TAB500 MG PO; +PROTONIX 40MG T40 MG PO; +TYLENOL 500MG500 MG PO
[2020-01-17 19:17] LABS: HEMATOCRIT 12.9 % (37.0-47.0); MEAN CELL VOLUME 94 fl (80.0-100.0); MEAN CORPUSCULAR HEMOGLOBIN 29 pg (27.0-31.0); MEAN CORPUSCULAR HGB CONC 31 g/dl (33.0-37.0); MEAN PLATELET VOLUME 10.6 fl (7.4-10.4); PLATELET COUNT 317 K/mm3 (130-400); RED BLOOD COUNT 1.37 M/mm3 (4.10-5.30); REDCELL DISTRIBUTION WIDTH-CV 16.2 % (11.5-14.5)
[2020-01-17 19:23] LABS: ALBUMIN 3.4 gm/dL (3.5-5.0); BILIRUBIN,TOTAL 0.4 mg/dL (0.0-1.0); CALCIUM 8.8 mg/dL (8.4-10.2); CREATININE, serum 1.27 (0.52-1.25); MAGNESIUM 1.9 mg/dL (1.6-2.3); PHOSPHOROUS 2.6 mg/dL (2.5-4.5); POTASSIUM 3.8 mmol/L (3.4-5.0); TOTAL PROTEIN 6.5 gm/dL (6.4-8.2)
[2020-01-17 19:32] LABS: BAND 5 % (0-10); EOSINOPHIL 3 % (0-4); LYMPHOCYTE 9 % (20.0-51.0); NEUTROPHILS 80 % (42.0-75.2)
[2020-01-17 19:33] LABS: ANISOCYTOSIS 2+; HYPOCHROMIA 2+; PLATELET ESTIMATE NORMAL (NORMAL); TARGET CELLS 2+
[2020-01-17 19:34] LABS: SCHISTOCYTES 1+
[2020-01-17] MEDS ORDERED: NEXIUM 20MG20 MG PO (20:48)
[2020-01-17 21:23] VITALS: BP 168/49; PULSE 80; TEMP 97.7
[2020-01-17 23:30] VITALS: BP 102/62; PULSE 79; TEMP 98.9
[2020-01-17 23:52] VITALS: BP 109/56; PULSE 79; TEMP 98.6
[2020-01-17 23:55] VITALS: BP 109/56; PULSE 78; TEMP 98.4
[2020-01-18] VITALS (15 sets, daily range): BP systolic 107–169; BP diastolic 50–97; PULSE 78–110; TEMP 98.2–98.8
[2020-01-18 09:12] LABS: HEMOGLOBIN 5.9 g/dl (12.5-16.0)
[2020-01-18 09:13] LABS: HEMATOCRIT 18.1 % (37.0-47.0)
[2020-01-18 23:33] LABS: HEMATOCRIT 24.1 % (37.0-47.0); HEMOGLOBIN 7.8 g/dl (12.5-16.0)
[2020-01-19] VITALS (7 sets, daily range): BP systolic 101–149; BP diastolic 81–92; PULSE 84–116; TEMP 98.4–99.3
[2020-01-20] VITALS (7 sets, daily range): BP systolic 94–192; BP diastolic 67–114; PULSE 71–96; TEMP 97.7–99
[2020-01-21] VITALS (7 sets, daily range): BP systolic 103–147; BP diastolic 52–70; PULSE 63–79; TEMP 97.8–98.8
[2020-01-21 07:22] LABS: MEAN CELL VOLUME 90 fl (80.0-100.0); MEAN CORPUSCULAR HGB CONC 31 g/dl (33.0-37.0); PLATELET COUNT 344 K/mm3 (130-400); REDCELL DISTRIBUTION WIDTH-CV 17.1 % (11.5-14.5)
[2020-01-21 07:26] LABS: ALBUMIN 2.8 gm/dL (3.5-5.0); CALCIUM 8.7 mg/dL (8.4-10.2); CREATININE, serum 3.53 (0.52-1.25); PHOSPHOROUS 4.5 mg/dL (2.5-4.5); POTASSIUM 4.2 mmol/L (3.4-5.0)
[2020-01-21 07:29] LABS: HEMATOCRIT 23.3 % (37.0-47.0); HEMOGLOBIN 7.3 g/dl (12.5-16.0); MEAN CORPUSCULAR HEMOGLOBIN 28 pg (27.0-31.0)
[2020-01-21 09:30] LABS: EOSINOPHIL 3 % (0-4); LYMPHOCYTE 8 % (20.0-51.0); NEUTROPHILS 82 % (42.0-75.2)
[2020-01-21 09:32] LABS: ANISOCYTOSIS 2+
[2020-01-21 09:33] LABS: HYPOCHROMIA 1+; TARGET CELLS 1+
[2020-01-22 03:25] VITALS: BP 138/62; PULSE 64; TEMP 97.8
[2020-01-22 07:17] VITALS: BP 156/68; PULSE 67; TEMP 98.2
[2020-01-22 09:29] LABS: BASO % 0.3 % (0.0-2.0); EOS # 0.3 (0.0-0.7); EOS % 1.9 % (0-4.0); GRAN # 11.1 (1.4-6.5); LYMPH # 0.7 (1.2-3.4); LYMPH % 5.4 % (20.0-51.0); MEAN CELL VOLUME 91 fl (80.0-100.0); MEAN CORPUSCULAR HGB CONC 31 g/dl (33.0-37.0); MEAN PLATELET VOLUME 10.9 fl (7.4-10.4); MONO # 1.2 (0.1-0.6); MONO % 8.8 % (1.7-9.3); PLATELET COUNT 372 K/mm3 (130-400); RED BLOOD COUNT 2.64 M/mm3 (4.10-5.30); REDCELL DISTRIBUTION WIDTH-CV 17.1 % (11.5-14.5)
[2020-01-22 09:31] LABS: HEMATOCRIT 23.9 % (37.0-47.0); HEMOGLOBIN 7.3 g/dl (12.5-16.0); MEAN CORPUSCULAR HEMOGLOBIN 28 pg (27.0-31.0)
[2020-01-22 09:39] LABS: CALCIUM 8.5 mg/dL (8.4-10.2); CREATININE, serum 3.58 (0.52-1.25); PHOSPHOROUS 5.6 mg/dL (2.5-4.5); POTASSIUM 4.9 mmol/L (3.4-5.0)
[2020-01-22] MEDS ORDERED: ESTRACE0.5 MG PO (10:47)
[2020-01-22 11:25] VITALS: BP 156/68; PULSE 67; TEMP 98.2
== END 2020-01-22 13:35 | DRG 377 ==
LOC: COL.ER 18:51 → MEDICAL 20:01 → ICU 20:02 → MEDICAL 21:12
PROVIDERS: Emergency Medicine; Internal Medicine Gastroenterology; Student in an Organized Health Care Education/Training Program; ADMIT Internal Medicine Nephrology
PROC: 5A1D70Z Performance of Urinary Filtration, Intermittent, Less than 6 Hours Per Day (ICD-10-PCS; 2020-01-18)
PROC: 0W3P8ZZ Control Bleeding in Gastrointestinal Tract, Via Natural or Artificial Opening Endoscopic (ICD-10-PCS; principal; 2020-01-18 11:00)
DX: K31.811 Angiodysplasia of stomach and duodenum with bleeding (principal); N18.6 End stage renal disease; E43 Unspecified severe protein-calorie malnutrition; I13.0 Hypertensive heart and chronic kidney disease with heart failure and stage 1 through stage 4 chronic kidney disease, or unspecified chronic kidney disease; K57.10 Diverticulosis of small intestine without perforation or abscess without bleeding; R19.5 Other fecal abnormalities; D50.0 Iron deficiency anemia secondary to blood loss (chronic); I25.10 Atherosclerotic heart disease of native coronary artery without angina pectoris; F10.10 Alcohol abuse, uncomplicated; G89.29 Other chronic pain; E78.5 Hyperlipidemia, unspecified; D63.1 Anemia in chronic kidney disease; N18.9 Chronic kidney disease, unspecified; K21.9 Gastro-esophageal reflux disease without esophagitis; J44.9 Chronic obstructive pulmonary disease, unspecified; Z87.01 Personal history of pneumonia (recurrent); Z87.891 Personal history of nicotine dependence; I25.2 Old myocardial infarction; Z79.82 Long term (current) use of aspirin
CPT/HCPCS: OP; J1644; J2704; J2916; J7030; P9016; Q5105; Q9967

== ENCOUNTER → 2020-02-04 | Outpatient (CLI) | payer MEDICARE, MEDICAID ==
[~2020-02-04] MED LIST changes: +ESTRACE0.5 MG PO; +NEXIUM 20MG20 MG PO
[2020-02-04 14:58] LABS: BASO # 0.1 (0.0-0.2); BASO % 0.4 % (0.0-2.0); EOS # 0.1 (0.0-0.7); EOS % 0.8 % (0-4.0); GRAN # 8.9 (1.4-6.5); GRAN % 76.8 % (42.2-75.2); LYMPH # 1.4 (1.2-3.4); MEAN CELL VOLUME 90 fl (80.0-100.0); MEAN CORPUSCULAR HGB CONC 31 g/dl (33.0-37.0); MONO # 1.1 (0.1-0.6); MONO % 9.5 % (1.7-9.3); PLATELET COUNT 276 K/mm3 (130-400); RED BLOOD COUNT 3.24 M/mm3 (4.10-5.30); REDCELL DISTRIBUTION WIDTH-CV 15.6 % (11.5-14.5)
[2020-02-04 15:07] LABS: HEMATOCRIT 29.2 % (37.0-47.0); MEAN CORPUSCULAR HEMOGLOBIN 28 pg (27.0-31.0)
== END ==
LOC: ZCOL.LAB 13:51
PROVIDERS: Internal Medicine
DX: I11.0 Hypertensive heart disease with heart failure (principal)

== ENCOUNTER → 2020-02-06 | Outpatient (CLI) | payer MEDICARE, MEDICAID ==
[2020-02-06 15:32] LABS: COLLECTION METHOD CLEAN CATCH
[2020-02-06 15:41] LABS: MUCOUS Present /lpf; PH 5 (5-8); SQUAMOUS EPITHELIAL 20-50 /hpf; URINE APPEARANCE Cloudy; URINE BACTERIA Many /hpf; URINE BILIRUBIN Negative (NEGATIVE); URINE BLOOD Negative (NEGATIVE); URINE COLOR Amber; URINE GLUCOSE Negative (NEGATIVE); URINE KETONE Negative (NEGATIVE); URINE LEUKOCYTE ESTERASE Negative (NEGATIVE); URINE NITRATE Negative (NEGATIVE); URINE PROTEIN(semi-quant) 2+ (NEGATIVE)
== END ==
LOC: ZCOL.LAB 15:11
PROVIDERS: Internal Medicine
DX: N39.0 Urinary tract infection, site not specified (principal)

== ENCOUNTER → 2020-02-09 | Outpatient (CLI) | payer MEDICARE, MEDICAID ==
[2020-02-09 19:34] LABS: CHOLESTEROL RISK RATIO 2.5
== END ==
LOC: ZCOL.LAB 18:57
PROVIDERS: Internal Medicine
DX: N18.6 End stage renal disease (principal); D50.9 Iron deficiency anemia, unspecified

== ENCOUNTER → 2020-02-14 | Outpatient (CLI) | payer MEDICARE, MEDICAID | LOC: ZCOL.LAB 20:03 | DX: D50.9 Iron deficiency anemia, unspecified (principal) ==

== ENCOUNTER → 2020-02-19 | Outpatient (CLI) | payer MEDICARE, MEDICAID | LOC: ZCOL.LAB 21:11 | DX: D50.9 Iron deficiency anemia, unspecified (principal) ==

== ENCOUNTER → 2020-04-16 | Outpatient (CLI) | payer MEDICARE, MEDICAID ==
[~2020-04-16] MED LIST changes: +ATROVENT I0.2 MG/1 M IH; +MASON NATURAL2000 IU PO
== END ==
LOC: ZCOL.LAB 10:27
DX: N18.6 End stage renal disease (principal)

== ENCOUNTER 2020-04-21 16:32 | Inpatient (IN) | payer MEDICARE, MEDICAID ==
[~2020-04-21] VITALS: Ht 165.1 cm; Wt 48.6 kg
[~2020-04-21 16:32] MED LIST changes: -ATROVENT I0.2 MG/1 M IH; -MASON NATURAL2000 IU PO
[2020-04-21] MEDS ORDERED: MASON NATURAL2000 IU PO (16:54)
[2020-04-21] MEDS ORDERED: FLONASEALLERGY NS (16:56)
[2020-04-21] MEDS ORDERED: ATROVENT I0.2 MG/1 M IH (16:57)
[2020-04-21 16:59] LABS: BASO % 0.4 % (0.0-2.0); EOS # 0.2 (0.0-0.7); EOS % 2.4 % (0-4.0); GRAN # 5.4 (1.4-6.5); HEMOGLOBIN 11.1 g/dl (12.5-16.0); LYMPH # 1.2 (1.2-3.4); LYMPH % 15.5 % (20.0-51.0); MEAN CELL VOLUME 85 fl (80.0-100.0); MEAN CORPUSCULAR HEMOGLOBIN 27 pg (27.0-31.0); MEAN CORPUSCULAR HGB CONC 31 g/dl (33.0-37.0); MEAN PLATELET VOLUME 12.2 fl (7.4-10.4); MONO # 0.8 (0.1-0.6); MONO % 10.3 % (1.7-9.3); PLATELET COUNT 216 K/mm3 (130-400); RED BLOOD COUNT 4.19 M/mm3 (4.10-5.30); REDCELL DISTRIBUTION WIDTH-CV 16.3 % (11.5-14.5)
[2020-04-21 17:00] LABS: HEMATOCRIT 35.7 % (37.0-47.0)
[2020-04-21 17:09] LABS: ALBUMIN 3.9 gm/dL (3.5-5.0); BILIRUBIN,TOTAL 0.8 mg/dL (0.0-1.0); C-REACTIVE PROTEIN 1.5 mg/dL (0.0-0.9); CALCIUM 8.9 mg/dL (8.4-10.2); CREATININE, serum 3.74 (0.52-1.25); POTASSIUM 4.2 mmol/L (3.4-5.0); TOTAL PROTEIN 7.3 gm/dL (6.4-8.2)
[2020-04-21 17:21] LABS: TROPONIN-I 0.048 ng/mL (0.000-0.035)
[2020-04-21 18:48] VITALS: BP 173/55; PULSE 54; TEMP 98.1
--- NOTE | 2020-04-21 18:54 | NUR ---
pt arrived to unit @ 1835. molecular technologist nurse given report at bedside. pt reports needing dinner. cafeteria called. denies pain. pt handed off.
--- NOTE | 2020-04-21 19:45 | NUR ---
Received report from Juhi. Patient just came up from ER. Assesment and med rec done. She denies pain right now. She states her left breast feels hard. With INT on left forearm. With dialysis catheter on right chest. With right arm fistula but patient states it's not working anymore. She said that she haven't had her dialysis for 4 days already. She went back to smoking cigarettes again since last month. She's on O2 at 3lpm via NC.
[2020-04-21 19:46] VITALS: BP 187/56; PULSE 56; TEMP 98.2
--- NOTE | 2020-04-21 19:53 | NUR ---
This nurse called Dr. Nixon regarding patient's blood pressure of 187/56. Med rec has been done by ER nurse and reviewed as well by this nurse. He said he will take a look at the home meds of the patient.
--- NOTE | 2020-04-21 21:30 | NUR ---
SCD placed on bilateral lower extremities. Informed patient to call us if she needs to go to the bathroom and patient says she's aware she cannot stand without supervision.
[2020-04-21 22:36] VITALS: BP 170/62
[2020-04-22] VITALS (7 sets, daily range): BP systolic 147–202; BP diastolic 51–80; PULSE 50–60; TEMP 98–99
--- NOTE | 2020-04-22 06:31 | NUR ---
Patient states she was able to sleep last night. Blood pressure went high again and hydralazine was given at 0333H. Informed patient that she will have a mammogram to check on swelling of her left breast.
[2020-04-22 09:20] LABS: BASO % 0.5 % (0.0-2.0); EOS # 0.2 (0.0-0.7); EOS % 2.9 % (0-4.0); GRAN # 4.7 (1.4-6.5); GRAN % 71.9 % (42.2-75.2); LYMPH # 0.8 (1.2-3.4); LYMPH % 12.2 % (20.0-51.0); MEAN CELL VOLUME 86 fl (80.0-100.0); MEAN CORPUSCULAR HGB CONC 31 g/dl (33.0-37.0); MEAN PLATELET VOLUME 12.2 fl (7.4-10.4); MONO # 0.8 (0.1-0.6); MONO % 12.2 % (1.7-9.3); PLATELET COUNT 162 K/mm3 (130-400); RED BLOOD COUNT 3.33 M/mm3 (4.10-5.30); REDCELL DISTRIBUTION WIDTH-CV 16.4 % (11.5-14.5)
[2020-04-22 09:27] LABS: ALBUMIN 2.9 gm/dL (3.5-5.0); CALCIUM 8.2 mg/dL (8.4-10.2); CREATININE, serum 3.08 (0.52-1.25); PHOSPHOROUS 3.6 mg/dL (2.5-4.5); POTASSIUM 4.1 mmol/L (3.4-5.0)
[2020-04-22 09:28] LABS: HEMATOCRIT 28.5 % (37.0-47.0); HEMOGLOBIN 8.8 g/dl (12.5-16.0); MEAN CORPUSCULAR HEMOGLOBIN 26 pg (27.0-31.0)
[2020-04-22 10:33] LABS: BASO % 0.5 % (0.0-2.0); EOS # 0.2 (0.0-0.7); GRAN # 4.4 (1.4-6.5); GRAN % 70.3 % (42.2-75.2); LYMPH # 0.8 (1.2-3.4); LYMPH % 13.3 % (20.0-51.0); MEAN CELL VOLUME 84 fl (80.0-100.0); MEAN CORPUSCULAR HEMOGLOBIN 27 pg (27.0-31.0); MEAN CORPUSCULAR HGB CONC 32 g/dl (33.0-37.0); MEAN PLATELET VOLUME 12.5 fl (7.4-10.4); MONO # 0.8 (0.1-0.6); MONO % 12.6 % (1.7-9.3); PLATELET COUNT 188 K/mm3 (130-400); RED BLOOD COUNT 3.76 M/mm3 (4.10-5.30); REDCELL DISTRIBUTION WIDTH-CV 16.4 % (11.5-14.5)
[2020-04-22 10:37] LABS: HEMATOCRIT 31.5 % (37.0-47.0)
--- NOTE | 2020-04-22 14:20 | NUR ---
DANAY met with the patient to discuss discharge plan. The patient resides at [facility] in long-term care. She states that Dr. Lily Juarez oversees her care at the [facility], but that she just switched to Dr. Kailey Coburn as her PCP. The patient's advanced directives are in EMR. Her DPOA-HC is her daughter, Estrella Alvarez (ph#[phone]). The patient reports that she plans on returning back to [facility] upon discharge. DANAY then contacted and reviewed d/c plan with the patient's daughter, Estrella. Estrella confirmed plan. DANAY attempted to contact Jose Carlos at [facility]. DANAY left her a voicemail and faxed over updates. SW to continue to follow.
--- NOTE | 2020-04-22 19:25 | NUR ---
Patient alert and oriented. denies any pain. Dialysis nurse report removing 3700ml during dialysis. sbp >180, gave hydralizine x 2. left breast ultrasound show edema, no mass. RN spoke with daughter, Estrella today. patient resting in bed
--- NOTE | 2020-04-22 19:30 | NUR ---
Received report from Vero. Seen patient awake, lying in bed. She states she doesn't have the appetite to eat her dinner. On O2 at 4lpm via NC. With INT on left forearm. Walker on the bedside. Call light within reach.
--- NOTE | 2020-04-22 20:10 | NUR ---
Ana ARIAS, informed this nurse that patient's blood pressure is 202/55 and it was checked twice. This nurse went to patient's room to check her blood pressure manually and it was 190/80. She denies headache, palpitations. Due night meds given including Metoprolol. Informed patient that I will recheck her blood pressure after few hours.
--- NOTE | 2020-04-22 22:00 | NUR ---
Rechecked patient's blood pressure and it's now down to 176/56. Hydralazine PRN given. Will re-check her blood pressure again and update Dr. Nixon.
--- NOTE | 2020-04-22 23:16 | NUR ---
Updated Dr. Nixon via phone call regarding episode of increase blood pressure of the patient. He said he will see the patien tomorrow.
[2020-04-23] VITALS (8 sets, daily range): BP systolic 141–174; BP diastolic 48–61; PULSE 51–57; TEMP 98–99.8
--- NOTE | 2020-04-23 06:12 | NUR ---
Latest blood pressure is 154/64. Patient has been asleep most of the night. She denies pain. Bed alarm on. Will endorse to day shift nurse.
[2020-04-23 07:27] LABS: ALBUMIN 3.2 gm/dL (3.5-5.0); CALCIUM 8.7 mg/dL (8.4-10.2); CREATININE, serum 2.64 (0.52-1.25); PHOSPHOROUS 3.6 mg/dL (2.5-4.5); POTASSIUM 4.1 mmol/L (3.4-5.0)
[2020-04-23 07:29] LABS: BASO % 0.3 % (0.0-2.0); EOS # 0.2 (0.0-0.7); EOS % 2.8 % (0-4.0); GRAN # 4.5 (1.4-6.5); LYMPH % 14.4 % (20.0-51.0); MEAN CELL VOLUME 86 fl (80.0-100.0); MEAN CORPUSCULAR HGB CONC 32 g/dl (33.0-37.0); MEAN PLATELET VOLUME 12.4 fl (7.4-10.4); MONO % 14.2 % (1.7-9.3); PLATELET COUNT 184 K/mm3 (130-400); RED BLOOD COUNT 3.57 M/mm3 (4.10-5.30); REDCELL DISTRIBUTION WIDTH-CV 16.6 % (11.5-14.5)
[2020-04-23 07:30] LABS: HEMATOCRIT 30.7 % (37.0-47.0); HEMOGLOBIN 9.7 g/dl (12.5-16.0); MEAN CORPUSCULAR HEMOGLOBIN 27 pg (27.0-31.0)
--- NOTE | 2020-04-23 10:21 | NUR ---
PT REFUSING BREATHING TXS
--- NOTE | 2020-04-23 11:03 | NUR ---
Jose Carlos, at [facility], returned DANAY's phone call. Jose Carlos reports that they will require a COVID test. DANAY notified Dr. Nixon and the patient's RN for them to order a COVID test. DANAY to fax updates to [facility] and will continue to follow.
--- NOTE | 2020-04-23 18:49 | NUR ---
PATIENT ALERT AND ORIENTED. REPORT INCREASE IN APPETITE, ENERGY AND STRENGTH TODAY. DIALYSIS NURSE REPORT 4000ML WAS DIALYZED TODAY. COVID19 SWAB WAS COMPLETED TODAY. UPDATED DAUGHTER- PIA TODAY.
--- NOTE | 2020-04-23 21:41 | NUR ---
Pt assessment completed, charted, charted, oriented, 2 lit NC. Meds provided as per OCT, tolerated well. Helped her settled on bed, call light on reach. No further needs at this time.
[2020-04-24 00:50] VITALS: BP 155/52
[2020-04-24 03:07] VITALS: BP 167/52; PULSE 58; TEMP 99.8
--- NOTE | 2020-04-24 04:52 | NUR ---
Pt had an uneventful night, slept through out the night. No further needs at this time.
[2020-04-24 06:20] VITALS: BP 170/57; PULSE 53; TEMP 98
[2020-04-24 07:25] VITALS: BP 155/60; PULSE 54; TEMP 98.4
--- NOTE | 2020-04-24 07:30 | NUR ---
AWARE OF PATIENT BLOOD PRESSURE. PRN HYDRALAZINE CAN NOT BE GIVEN AT THIS TIME IT IS Q4
[2020-04-24 07:39] LABS: BASO % 0.3 % (0.0-2.0); EOS # 0.2 (0.0-0.7); EOS % 2.3 % (0-4.0); GRAN # 5.1 (1.4-6.5); GRAN % 73.3 % (42.2-75.2); LYMPH # 0.7 (1.2-3.4); LYMPH % 10.4 % (20.0-51.0); MEAN CELL VOLUME 86 fl (80.0-100.0); MEAN CORPUSCULAR HGB CONC 31 g/dl (33.0-37.0); MEAN PLATELET VOLUME 12.8 fl (7.4-10.4); MONO % 13.6 % (1.7-9.3); PLATELET COUNT 175 K/mm3 (130-400); RED BLOOD COUNT 3.66 M/mm3 (4.10-5.30); REDCELL DISTRIBUTION WIDTH-CV 16.5 % (11.5-14.5)
[2020-04-24 07:40] LABS: HEMATOCRIT 31.4 % (37.0-47.0); HEMOGLOBIN 9.7 g/dl (12.5-16.0); MEAN CORPUSCULAR HEMOGLOBIN 27 pg (27.0-31.0)
[2020-04-24 08:02] LABS: ALBUMIN 3.3 gm/dL (3.5-5.0); CALCIUM 8.7 mg/dL (8.4-10.2); CREATININE, serum 2.24 (0.52-1.25); PHOSPHOROUS 3.3 mg/dL (2.5-4.5); POTASSIUM 4.1 mmol/L (3.4-5.0)
[2020-04-24] MEDS ORDERED: EFFEXOR XR75 MG/CAP PO (10:56)
[2020-04-24 11:13] VITALS: BP 186/58; PULSE 55; TEMP 98.7
--- NOTE | 2020-04-24 11:38 | NUR ---
The patient is to tentatively d/c today, pending COVID results. DANAY contacted and updated the patient's daughter, Estrella. She is agreeable to the plan. DANAY also read the IM form outloud to Estrella. Estrella verbalized understanding and gave DANAY approval to sign the form on her behalf. DANAY attempted to notify Jose Carlos at [facility]. DANAY left her a voicemail.
--- NOTE | 2020-04-24 12:18 | NUR ---
PATIENT BLOOD PRESSURE ELEVATED BUT PRN HYDRALAZINE GIVEN PER PERAMETERS. PATIENT LAYING IN BED WATITING ON LUNCH
--- NOTE | 2020-04-24 15:33 | NUR ---
The patient's COVID results came back negative. DANAY notified and faxed the results to Jose Carlos at [facility]. The patient is to discharge today, 04/24, back to [facility] for a skilled stay. Transportation was scheduled at 1600, via [facility]. DANAY informed the patient's RN and her daughter, Estrella, via phone. They were both agreeable to the time. No additional needs at this time.
== END 2020-04-24 16:15 | DRG 640 ==
LOC: COL.ER 16:32 → MEDICAL 17:58
PROVIDERS: Emergency Medicine; ADMIT Internal Medicine Nephrology
PROC: 5A1D70Z Performance of Urinary Filtration, Intermittent, Less than 6 Hours Per Day (ICD-10-PCS; principal; 2020-04-22)
DX: E87.70 Fluid overload, unspecified (principal); N18.6 End stage renal disease; I12.0 Hypertensive chronic kidney disease with stage 5 chronic kidney disease or end stage renal disease; F32.9 Major depressive disorder, single episode, unspecified; N63.0 Unspecified lump in unspecified breast; D63.1 Anemia in chronic kidney disease; F17.210 Nicotine dependence, cigarettes, uncomplicated; Z79.82 Long term (current) use of aspirin
CPT/HCPCS: J1644; J2916; J7030; Q5105

== ENCOUNTER → 2020-09-01 | Outpatient (CLI) | payer MEDICARE, MEDICAID ==
[~2020-09-01] MED LIST changes: +ATROVENT I0.2 MG/1 M IH; +EFFEXOR XR75 MG/CAP PO; +MASON NATURAL2000 IU PO
== END ==
LOC: COL.RAD 10:38
DX: D25.9 Leiomyoma of uterus, unspecified (principal); R93.89 Abnormal findings on diagnostic imaging of other specified body structures